=== PATIENT | female | born 1970 | race American Indian/Alaskan Native ===

== ENCOUNTER 2017-01-07 17:14 | Inpatient (IN) | payer BC ==
[2017-01-07 17:16] VITALS: BMI 24.7
--- NOTE | 2017-01-07 17:24 | C.PDOC ---
History Of Present Illness 46 year old female, history of HTN and diabetes, no history of stroke or HI, presents to the ED for evaluation of right sided facial droop and slurred speech. Per patients daughter, at approximately 16:15 this afternoon the patient began having right sided facial droop, slurring her speech, and stating that she felt her arm being rubbed by her long since child. Per patient , all of these symptoms have since resolved. She denies any physical complaints at this time. No chest pain, headache, or dizziness. Time Seen by Provider: 01/07/17 17:19 Chief Complaint (Nursing): Weakness/Neurological Deficit History Per: Patient, Family History/Exam Limitations: no limitations Current Symptoms Are (Timing): Gone Fall Associated With With Symptoms: No - Symptoms Of CVA Associated Symptoms: Impaired Speech Past Medical History Reviewed: Historical Data, Nursing Documentation, Vital Signs Vital Signs: Last Vital Signs Temp 98.9 F 01/07/17 17:15 Pulse 101 H 01/07/17 18:18 Resp 20 01/07/17 18:18 BP 182/103 H 01/07/17 18:18 Pulse Ox 96 01/07/17 18:18 - Medical History PMH: Diabetes, HTN Denies: CVA Family History: States: Unknown Family Hx - Social History Hx Alcohol Use: Yes Hx Substance Use: No - Immunization History Hx Tetanus Toxoid Vaccination: No Hx Influenza Vaccination: No Review Of Systems Cardiovascular: Negative for: Chest Pain Musculoskeletal: Negative for: Arm Pain Neurological: Positive for: Change in Speech, Other (Facial droop). Negative for: Headache, Dizziness Physical Exam - Physical Exam Appears: Non-toxic, No Acute Distress Skin: Normal Color, Warm, Dry Head: Atraumatic, Normacephalic Cardiovascular: Rhythm Regular, No Murmur Respiratory: Normal Breath Sounds Gastrointestinal/Abdominal: Normal Exam, Soft, No Tenderness Extremity: No Pedal Edema, No Deformity Neurological/Psych: Oriented x3, Normal Speech ED Course And Treatment - Laboratory Results Result Diagrams: 01/07/17 17:23 01/07/17 17:23 NIHSS Stroke Scale - Date/Time Evaluation Performed Date Performed: 01/07/17 Time Performed: 17:20 When Was NIHSS Performed: Baseline - How Severe is the Stoke Level of Consciousness: 0=Alert LOC to Questions: 0=Both comments correct LOC to commands: 0=Obeys both correctly Best Gaze: 0=Normal Visual: 0=No visual loss Facial: 1=Minor asymmetry Motor Arm - Left: 0=No drift Motor Arm - Right: 0=No drift Motor Leg - Left: 0=No drift Motor Leg - Right: 0=No drift Limb Ataxia: 0=Absent Sensory: 0=Normal Best Language: 0=No aphasia Dysarthia: 0=Normal articulation Extinction & Inattention (Neglect): 0=Normal, no object Score: 1 Severity Of Stroke: 1-4= Minor Stroke Medical Decision Making Medical Decision Making: Patient has multiple stroke risk factors including HTN, diabetes, and history of smoking. On arrival patient had a very high blood pressure however repeat BP was 177/[address] brain was read as no hemorrhage. Patient returned from CT scan and CT read as no hemorrhage. Patient began to develop slurred speech and facial droop while in ED. tPA was mixed. Patient is refusing the medication at this time. She is expressing understanding that this is standard of care and that her stroke symptoms could get worse. The patent and the family would prefer to wait until the results of the CTA are in before making a decision on treatment. Patient has signed refusal. Disposition Discussed With : Vinny Colón Counseled Patient/Family Regarding: Studies Performed, Diagnosis - Disposition Disposition: HOSPITALIZED Disposition Time: 18:28 Condition: GUARDED Forms: [facility] (Danish) - Clinical Impression Clinical Impression: Stroke - Scribe Statement The provider has reviewed the documentation as recorded by the Debibeibarturo Saul Provider Attestation: All medical record entries made by the Scribe were at my direction and personally dictated by me. I have reviewed the chart and agree that the record accurately reflects my personal performance of the history, physical exam, medical decision making, and the department course for this patient. I have also personally directed, reviewed, and agree with the discharge instructions and disposition. Decision To Admit - Pt Status Changed To: Hospital Disposition Of: Inpatient - Admit Certification Admit to Inpatient:: After my assessment, the patient will require hospitalization for at least two midnights. This is because of the severity of symptoms shown, intensity of services needed, and/or the medical risk in this patient being treated as an outpatient. - InPatient: Physician Admission Certification: I certify that this patient requires 2 or more midnights of care for the following reason:: stroke - . Bed Request Type: ICU Patient Diagnosis: Stroke
[2017-01-07 17:31] LABS: BASO # 0.1 K/uL (0.0-0.2); BASO % 0.5 % (0.0-2.0); EOS # 0.1 K/uL (0.0-0.7); EOS % 1.2 % (0.0-4.0); LYMPH # 2.4 K/uL (1.0-4.3); LYMPH % 21.4 % (20.0-40.0); MEAN CELL VOLUME 90.5 fL (81.0-99.0); MEAN CORPUSCULAR HEMOGLOBIN 31.8 pg (27.0-31.0); MEAN CORPUSCULAR HGB CONC 35.2 g/dL (33.0-37.0); MEAN PLATELET VOLUME 8.7 fL (7.2-11.7); MONO # 0.6 K/uL (0.0-0.8); RED CELL DISTRIBUTION WIDTH 12.7 % (11.5-14.5); WHITE BLOOD COUNT 11.3 K/uL (4.8-10.8)
[2017-01-07] MEDS ORDERED: Iodixanol 320 MG/ML 100 ML BOTTLE IV ONE (17:36)
--- NOTE | 2017-01-07 17:42 | CT ---
PROCEDURE: CT HEAD WITHOUT CONTRAST. HISTORY: Code Stroke COMPARISON: None available. TECHNIQUE: Axial computed tomography images were obtained through the head/brain without intravenous contrast. Radiation dose: Total exam DLP = 816.13 mGy-cm. This CT exam was performed using one or more of the following dose reduction techniques: Automated exposure control, adjustment of the mA and/or kV according to patient size, and/or use of iterative reconstruction technique. FINDINGS: HEMORRHAGE: No intracranial hemorrhage. BRAIN: No mass effect or edema. No atrophy or chronic microvascular ischemic changes. VENTRICLES: Unremarkable. No hydrocephalus. CALVARIUM: Unremarkable. PARANASAL SINUSES: Unremarkable as visualized. No significant inflammatory changes. MASTOID AIR CELLS: Unremarkable as visualized. No inflammatory changes. OTHER FINDINGS: None. IMPRESSION: No evidence of acute intracranial hemorrhage territorial infarct mass effect or midline shift.
[2017-01-07 17:46] LABS: CHLORIDE 96 mmol/L (98-107); SODIUM 134 mmol/L (132-148)
[2017-01-07 17:48] LABS: CHOLESTEROL 244 mg/dL (0-199)
[2017-01-07 17:49] LABS: ALB/GLOB RATIO 1.2 (1.0-2.1); ALKALINE PHOSPHATASE 80 U/L (38-126); ALT/SGPT 28 U/L (9-52); AST/SGOT 25 U/L (14-36); BILIRUBIN,TOTAL 0.6 mg/dL (0.2-1.3); BLOOD UREA NITROGEN 9 mg/dL (7-17); CARBON DIOXIDE 25 mmol/L (22-30); GFR AFRICAN-AMERICAN > 60; GLUCOSE,RANDOM 350 mg/dL (65-105); TOTAL PROTEIN 7.8 g/dL (6.3-8.3)
[2017-01-07 17:50] LABS: ALCOHOL SERUM < 10 mg/dl (0-10); CALCIUM 9.3 mg/dl (8.6-10.4)
[2017-01-07] MEDS: niCARdipine IV 25 MG in Sodium Chloride 0.9% 240 ML IV SCH ×2 (19:54→23:02)
--- NOTE | 2017-01-07 21:34 | CP.CCUPN ---
CCU Subjective - Physician Review Events Since Last Encounter (Free Text): 01/07/17 21:48 The Patient was seen and examined at the bedside, Medical records reviewed, and management issues were discussed and formulated with the house staff. 46 year old female with PMHx of HTN and diabetes, Who presents to the ED for evaluation of right sided facial droop and slurred speech. As per patients daughter the patient began having right sided facial droop, slurring her speech at approximately 16:15 this afternoon BP was elevated and was ordered to start Cardene drip but not started since BP better now No chest pain/SOB, No fever/chills, Denies headache, palpitation, LOC or dizziness. Admitted to ICU for frequent neurocheck Patient AAO x3, and all of the neurological symptoms have since resolved. CCU Objective - Vital Signs / Intake & Output Vital Signs (Last 4 hours): Vital Signs Temp Pulse Pulse Resp BP Pulse Ox 01/07/17 20:19 99.4 F 106 H 18 148/74 98 01/07/17 19:44 99.6 F 108 H 18 164/93 H 96 01/07/17 18:18 101 H 20 182/103 H 96 01/07/17 18:10 105 H 18 150/71 96 01/07/17 18:07 104 H 18 98 01/07/17 18:03 106 H 18 174/101 H 96 01/07/17 17:58 103 H 18 155/83 H 01/07/17 17:34 108 H 18 171/90 H 96 01/07/17 17:29 108 H 18 171/90 H 96 Intake and Output (Last 8hrs): Intake & Output 01/07/17 01/07/17 01/07/17 06:59 14:59 22:59 Weight 144 lb 6.444 oz - Physical Exam Head: Positive for: Atraumatic, Normocephalic, Other (Right sided facial droop ) . Negative for: Tenderness, Contusion, Swelling, Ecchymosis, Abrasion Pupils: Positive for: PERRL. Negative for: Sluggish, Non-Reactive Extroacular Muscles: Positive for: EOMI. Negative for: Gaze Palsy, Entrapment Conjunctiva: Positive for: Normal. Negative for: Injected, Icteric Ears: Positive for: Normal, NORMAL TM Mouth: Positive for: Moist Mucous Membranes. Negative for: Dry, Drooling, Trismus Pharnyx: Positive for: Normal Nose (Internal): Positive for: Normal Inspection Neck: Positive for: Normal Range of Motion, Trachea Midline. Negative for: Meningeal Signs, MIDLINE TENDERNESS, Paraspinal Tenderness, JVD, Lymphadenopathy , Bruit, Other Respiratory/Chest: Positive for: Clear to Auscultation, Good Air Exchange. Negative for: Respiratory Distress, Accessory Muscle Use, Wheezes, Decreased Breath Sounds, Rales, Retracting Cardiovascular: Positive for: Regular Rate and Rhythm, Normal S1, S2, Peripheal Pulses Present. Negative for: Murmurs, Irregular Rhythm, Tachycardic, Bradycardic Abdomen: Positive for: Normal Bowel Sounds. Negative for: Tenderness, Distention, Peritoneal Signs Upper Extremity: Positive for: Normal Inspection, NORMAL PULSES, Capillary Refill < 2s. Negative for: Cyanosis, Edema Lower Extremity: Positive for: Normal Inspection, NORMAL PULSES, Capillary Refill < 2 s. Negative for: Edema, CALF TENDERNESS Neurological: Positive for: GCS=15, CN II-XII Intact, Speech Normal, Motor Func Grossly Intact, Normal Sensory Function, Other (Right sided facial droop ) Psychiatric: Positive for: Alert, Oriented x 3, Normal Insight - Medications Active Medications: Active Medications Generic Name Dose Route Start Last Admin Trade Name Freq PRN Reason Stop Dose Admin Nicardipine HCl 25 mg/ Sodium 250 mls @ 50 mls/hr 01/07/17 18:45 01/07/17 19: 54 Chloride IV Not Given .Q5H ALIN Protocol 5 MG/HR - Patient Studies Lab Studies: Lab Studies 01/07/17 01/07/17 01/07/17 Range/Units 17:23 17:23 17:23 WBC (4.8-10.8) K/uL RBC (3.80-5.20) Mil/uL Hgb (11.0-16.0) g/dL Hct (34.0-47.0) % MCV (81.0-99.0) fL MCH (27.0-31.0) pg MCHC (33.0-37.0) g/dL RDW (11.5-14.5) % Plt Count (130-400) K/uL MPV (7.2-11.7) fL Neut % (Auto) (50.0-75.0) % Lymph % (Auto) (20.0-40.0) % Harmon % (Auto) (0.0-10.0) % Eos % (Auto) (0.0-4.0) % Baso % (Auto) (0.0-2.0) % Neut # (1.8-7.0) K/uL Lymph # (1.0-4.3) K/uL Harmon # (0.0-0.8) K/uL Eos # (0.0-0.7) K/uL Baso # (0.0-0.2) K/uL PT 11.8 (9.7-12.2) SECONDS INR 1.0 APTT 24 (21-34) SECONDS Sodium 134 (132-148) mmol/L Potassium 3.0 L (3.6-5.2) mmol/L Chloride 96 L (98-107) mmol/L Carbon Dioxide 25 (22-30) mmol/L Anion Gap 16 (10-20) BUN 9 (7-17) mg/dL Creatinine 0.6 L (0.7-1.2) mg/dL Est GFR ( Amer) > 60 Est GFR (Non-Af Amer) > 60 POC Glucose (mg/dL) (65-110) mg/dL Random Glucose 350 H (65-105) mg/dL Calcium 9.3 (8.6-10.4) mg/dl Total Bilirubin 0.6 (0.2-1.3) mg/dL AST 25 (14-36) U/L ALT 28 (9-52) U/L Alkaline Phosphatase 80 (38-126) U/L Troponin I < 0.0120 (0.00-0.120) ng/mL Total Protein 7.8 (6.3-8.3) g/dL Albumin 4.3 (3.5-5.0) g/dL Globulin 3.5 (2.2-3.9) gm/dL Albumin/Globulin Ratio 1.2 (1.0-2.1) Triglycerides 279 H (0-149) mg/dL Cholesterol 244 H (0-199) mg/dL LDL Cholesterol Direct 166 H (0-129) mg/dL HDL Cholesterol 41 (30-70) mg/dL Alcohol, Quantitative < 10 (0-10) mg/dl Blood Type O POSITIVE Antibody Screen Negative 01/07/17 01/07/17 Range/Units 17:23 17:18 WBC 11.3 H (4.8-10.8) K/uL RBC 4.09 (3.80-5.20) Mil/uL Hgb 13.0 (11.0-16.0) g/dL Hct 37.0 (34.0-47.0) % MCV 90.5 (81.0-99.0) fL MCH 31.8 H (27.0-31.0) pg MCHC 35.2 (33.0-37.0) g/dL RDW 12.7 (11.5-14.5) % Plt Count 314 (130-400) K/uL MPV 8.7 (7.2-11.7) fL Neut % (Auto) 71.9 (50.0-75.0) % Lymph % (Auto) 21.4 (20.0-40.0) % Harmon % (Auto) 5.0 (0.0-10.0) % Eos % (Auto) 1.2 (0.0-4.0) % Baso % (Auto) 0.5 (0.0-2.0) % Neut # 8.2 H (1.8-7.0) K/uL Lymph # 2.4 (1.0-4.3) K/uL Harmon # 0.6 (0.0-0.8) K/uL Eos # 0.1 (0.0-0.7) K/uL Baso # 0.1 (0.0-0.2) K/uL PT (9.7-12.2) SECONDS INR APTT (21-34) SECONDS Sodium (132-148) mmol/L Potassium (3.6-5.2) mmol/L Chloride (98-107) mmol/L Carbon Dioxide (22-30) mmol/L Anion Gap (10-20) BUN (7-17) mg/dL Creatinine (0.7-1.2) mg/dL Est GFR ( Amer) Est GFR (Non-Af Amer) POC Glucose (mg/dL) 368 H (65-110) mg/dL Random Glucose (65-105) mg/dL Calcium (8.6-10.4) mg/dl Total Bilirubin (0.2-1.3) mg/dL AST (14-36) U/L ALT (9-52) U/L Alkaline Phosphatase (38-126) U/L Troponin I (0.00-0.120) ng/mL Total Protein (6.3-8.3) g/dL Albumin (3.5-5.0) g/dL Globulin (2.2-3.9) gm/dL Albumin/Globulin Ratio (1.0-2.1) Triglycerides (0-149) mg/dL Cholesterol (0-199) mg/dL LDL Cholesterol Direct (0-129) mg/dL HDL Cholesterol (30-70) mg/dL Alcohol, Quantitative (0-10) mg/dl Blood Type Antibody Screen Laboratory Results - last 24 hr 01/07/17 01/07/17 01/07/17 17:18 17:23 17:23 WBC 11.3 H RBC 4.09 Hgb 13.0 Hct 37.0 MCV 90.5 MCH 31.8 H MCHC 35.2 RDW 12.7 Plt Count 314 MPV 8.7 Neut % (Auto) 71.9 Lymph % (Auto) 21.4 Harmon % (Auto) 5.0 Eos % (Auto) 1.2 Baso % (Auto) 0.5 Neut # 8.2 H Lymph # 2.4 Harmon # 0.6 Eos # 0.1 Baso # 0.1 PT 11.8 INR 1.0 APTT 24 Sodium Potassium Chloride Carbon Dioxide Anion Gap BUN Creatinine Est GFR ( Amer) Est GFR (Non-Af Amer) POC Glucose (mg/dL) 368 H Random Glucose Calcium Total Bilirubin AST ALT Alkaline Phosphatase Troponin I Total Protein Albumin Globulin Albumin/Globulin Ratio Triglycerides Cholesterol LDL Cholesterol Direct HDL Cholesterol Alcohol, Quantitative Blood Type Antibody Screen 01/07/17 01/07/17 17:23 17:23 WBC RBC Hgb Hct MCV MCH MCHC RDW Plt Count MPV Neut % (Auto) Lymph % (Auto) Harmon % (Auto) Eos % (Auto) Baso % (Auto) Neut # Lymph # Harmon # Eos # Baso # PT INR APTT Sodium 134 Potassium 3.0 L Chloride 96 L Carbon Dioxide 25 Anion Gap 16 BUN 9 Creatinine 0.6 L Est GFR ( Amer) > 60 Est GFR (Non-Af Amer) > 60 POC Glucose (mg/dL) Random Glucose 350 H Calcium 9.3 Total Bilirubin 0.6 AST 25 ALT 28 Alkaline Phosphatase 80 Troponin I < 0.0120 Total Protein 7.8 Albumin 4.3 Globulin 3.5 Albumin/Globulin Ratio 1.2 Triglycerides 279 H Cholesterol 244 H LDL Cholesterol Direct 166 H HDL Cholesterol 41 Alcohol, Quantitative < 10 Blood Type O POSITIVE Antibody Screen Negative EKG/Cardiology Studies: Cardiology / EKG Studies 01/07/17 17:18 ELECTROCARDIOGRAM Stat Comment: Mode Of Transportation: BED Reason For Exam: code stroke ELECTROCARDIOGRAM Stat Comment: Mode Of Transportation: BED Reason For Exam: code stroke 01/07/17 18:07 ELECTROCARDIOGRAM Stat Comment: Mode Of Transportation: BED Reason For Exam: code stroke Fingerstick Blood Sugar Results: 368 Review of Systems - Cardiovascular Cardiovascular: absent: As Per HPI, Acrocyanosis, Chest Pain, Chest Pain at Rest , Chest Pain with Activity, Claudication, Diaphoresis, Dyspnea, Dyspnea on Exertion, Edema, Irregular Heart Rhythm, Pain Radiating to Arm/Neck/Jaw, Leg Edema, Leg Ulcers, Lightheadedness, Orthopnea, Palpitations, Paroxysmal Nocturnal Dyspnea, Pedal Edema, Radiating Pain, Rapid Heart Rate, Slow Heart Rate, Syncope, Other, UNREMARKABLE - Respiratory Respiratory: absent: As Per HPI, Cough, Dyspnea, Hemoptysis, Dyspnea on Exertion , Wheezing, Snoring, Stridor, Pain on Inspiration, Chest Congestion, Excessive Mucous Production, Change in Mucous Color, Pain with Coughing, Other, UNREMARKABLE Critical Care Progress Note - Extremities/Vascular Does the Patient have a Central Venous Catheter?: No Does the Patient need a Central Venous Catheter?: No Does the Patient have a Jordan Catheter?: No Does the Patient need a Jordan Catheter?: No Assessment/Plan (1) Acute ischemic stroke Current Visit: Yes Status: Acute (2) Hyperglycemia Current Visit: No Status: Acute (3) Diabetes mellitus Current Visit: Yes Status: Acute - Assessment and Plan (Free Text) Assessment: - Admit to ICU, Frequent Neuro check - allow permissive hypertension; treat if systolic BP > 185 - NPO - Speech and swallow evaluation - PT/OT evaluation - MRI brain acute stroke sequences (diffusion/FLAIR) - Telemetry monitoring to assess for afib though low suspicion for embolus -- Blood glucose control - Check utox, A1c, lipid panel - 324 mg ASA x1, then restart 81 mg daily - Start atorvastatin 80 mg pending lipid panel - Neuro consult appreciate - GI/DVT PPX
[2017-01-07] MEDS ORDERED: Rosuvastatin Calcium 2.5 mg Tab PO SCH (22:00)
[2017-01-07] MEDS: (Novolin R) Insulin Human Regular 100 units/ml vial SC SCH (23:03)
[2017-01-07] MEDS: Metoprolol 1 mg/ml Inj IVP SCH (23:03)
--- NOTE | 2017-01-07 23:18 | CP.PCM.HP ---
History of Present Illness - History of Present Illness History of Present Illness: 46 year old female, history of HTN and diabetes, no history of stroke or CT, presents to the ED for evaluation of right sided facial droop and slurred speech. Per patients daughter, at approximately 16:15 this afternoon the patient began having right sided facial droop, slurring her speech, and stating that she felt her arm being rubbed by her long since child. Per patient , all of these symptoms have since resolved. She denies any physical complaints at this time. No chest pain, headache, or dizziness. Past Patient History - Past Social History Smoking Status: Light Smoker < 10 Cigarettes Daily - CARDIAC Hx Hypertension: Yes - ENDOCRINE/METABOLIC Hx Endocrine Disorders: Yes Hx Diabetes Mellitus Type 2: Yes - PSYCHIATRIC Hx Substance Use: No - SURGICAL HISTORY Hx Surgeries: No Meds Allergies/Adverse Reactions: Allergies Allergy/AdvReac Type Severity Reaction Status Date / Time No Known Allergies Allergy Verified 01/07/17 17:16 Results - Vital Signs Recent Vital Signs: Last Vital Signs Temp 99.4 F 01/07/17 20:19 Pulse 95 H 01/07/17 22:49 Resp 18 01/07/17 22:49 BP 125/59 L 01/07/17 22:49 Pulse Ox 90 L 01/07/17 22:49 - Labs Result Diagrams: 01/07/17 17:23 01/07/17 17:23 Labs: Laboratory Results - last 24 hr 01/07/17 01/07/17 01/07/17 17:18 17:23 17:23 WBC 11.3 H RBC 4.09 Hgb 13.0 Hct 37.0 MCV 90.5 MCH 31.8 H MCHC 35.2 RDW 12.7 Plt Count 314 MPV 8.7 Neut % (Auto) 71.9 Lymph % (Auto) 21.4 Levy % (Auto) 5.0 Eos % (Auto) 1.2 Baso % (Auto) 0.5 Neut # 8.2 H Lymph # 2.4 Levy # 0.6 Eos # 0.1 Baso # 0.1 PT 11.8 INR 1.0 APTT 24 Sodium Potassium Chloride Carbon Dioxide Anion Gap BUN Creatinine Est GFR ( Amer) Est GFR (Non-Af Amer) POC Glucose (mg/dL) 368 H Random Glucose Calcium Total Bilirubin AST ALT Alkaline Phosphatase Troponin I Total Protein Albumin Globulin Albumin/Globulin Ratio Triglycerides Cholesterol LDL Cholesterol Direct HDL Cholesterol Alcohol, Quantitative Blood Type Antibody Screen 01/07/17 01/07/17 17:23 17:23 WBC RBC Hgb Hct MCV MCH MCHC RDW Plt Count MPV Neut % (Auto) Lymph % (Auto) Levy % (Auto) Eos % (Auto) Baso % (Auto) Neut # Lymph # Levy # Eos # Baso # PT INR APTT Sodium 134 Potassium 3.0 L Chloride 96 L Carbon Dioxide 25 Anion Gap 16 BUN 9 Creatinine 0.6 L Est GFR ( Amer) > 60 Est GFR (Non-Af Amer) > 60 POC Glucose (mg/dL) Random Glucose 350 H Calcium 9.3 Total Bilirubin 0.6 AST 25 ALT 28 Alkaline Phosphatase 80 Troponin I < 0.0120 Total Protein 7.8 Albumin 4.3 Globulin 3.5 Albumin/Globulin Ratio 1.2 Triglycerides 279 H Cholesterol 244 H LDL Cholesterol Direct 166 H HDL Cholesterol 41 Alcohol, Quantitative < 10 Blood Type O POSITIVE Antibody Screen Negative
[2017-01-08 06:27] LABS: BASO % 0.5 % (0.0-2.0); EOS # 0.2 K/uL (0.0-0.7); EOS % 1.6 % (0.0-4.0); HEMATOCRIT 35.9 % (34.0-47.0); LYMPH # 2.6 K/uL (1.0-4.3); LYMPH % 26.7 % (20.0-40.0); MEAN CELL VOLUME 90.5 fL (81.0-99.0); MEAN CORPUSCULAR HGB CONC 35.4 g/dL (33.0-37.0); MEAN PLATELET VOLUME 8.9 fL (7.2-11.7); MONO # 0.5 K/uL (0.0-0.8); MONO % 5.3 % (0.0-10.0); NRBC % 0.2 % (0.0-2.0); RED CELL DISTRIBUTION WIDTH 13.1 % (11.5-14.5); WHITE BLOOD COUNT 9.9 K/uL (4.8-10.8)
[2017-01-08] MEDS: Metoprolol 1 mg/ml Inj IVP SCH ×4 (06:27→22:19)
[2017-01-08] MEDS: niCARdipine IV 25 MG in Sodium Chloride 0.9% 240 ML IV SCH ×2 (06:27→10:16)
[2017-01-08 06:31] LABS: CHLORIDE 97 mmol/L (98-107); SODIUM 134 mmol/L (132-148)
[2017-01-08 06:32] LABS: POTASSIUM 2.8 mmol/L (3.6-5.2)
[2017-01-08 06:34] LABS: ALKALINE PHOSPHATASE 77 U/L (38-126); AST/SGOT 15 U/L (14-36); BILIRUBIN,TOTAL 0.4 mg/dL (0.2-1.3); BLOOD UREA NITROGEN 7 mg/dL (7-17); CARBON DIOXIDE 27 mmol/L (22-30); GFR AFRICAN-AMERICAN > 60; GLUCOSE,RANDOM 272 mg/dL (65-105); PHOSPHOROUS 3.1 mg/dL (2.5-4.5); TOTAL PROTEIN 7.3 g/dL (6.3-8.3)
[2017-01-08 06:35] LABS: ALT/SGPT 27 U/L (9-52); CALCIUM 9.2 mg/dl (8.6-10.4); MAGNESIUM 1.7 mg/dL (1.6-2.3)
[2017-01-08] MEDS: (Novolin R) Insulin Human Regular 100 units/ml vial SC SCH ×4 (08:03→22:18)
--- NOTE | 2017-01-08 08:53 | RAD ---
HISTORY: code stroke COMPARISON: Comparison is made to 05/01/2015 FINDINGS: LUNGS: No active pulmonary disease. PLEURA: No significant pleural effusion identified, no pneumothorax apparent. CARDIOVASCULAR: Normal. OSSEOUS STRUCTURES: No significant abnormalities. VISUALIZED UPPER ABDOMEN: Normal. OTHER FINDINGS: None. IMPRESSION: No active disease. No significant interval change since the previous exam noted.
[2017-01-08] MEDS ORDERED: Potassium Chloride 20 mEq ER Tab PO SCH (10:00)
--- NOTE | 2017-01-08 10:23 | CT ---
PROCEDURE: CT Angiography of the Brain. HISTORY: possible stroke COMPARISON: Comparison is made to previous noncontrast study done on the same day TECHNIQUE: CT angiography of the intracranial arteries was performed. Coronal and sagittal maximum intensity projection reformated images were generated. Total exam DLP: 118.[address] exam was performed using one or more of the following dose reduction techniques: Automated exposure control, adjustment of the mA and/or kV according to patient size, and/or use of iterative reconstruction technique. FINDINGS: INTERNAL CEREBRAL ARTERIES: Unremarkable. The skull base, petrous, cavernous and supraclinoid segments are bilaterally widely patient. ANTERIOR CEREBRAL ARTERIES: Unremarkable. A1 and A2 segments are widely patent. Smaller distal branches unremarkable, as visualized. MIDDLE CEREBRAL ARTERIES: Unremarkable. M1 and M2 segments are widely patent. Perisylvian branches grossly symmetric. POSTERIOR CIRCULATION: Basilar Artery: Unremarkable. Distal Vertebral Arteries: Unremarkable. Posterior Cerebral Arteries: Unremarkable. Posterior Inferior Cerebellar Arteries: Unremarkable. ANEURYSM/ VASCULAR MALFORMATIONS: None. OTHER FINDINGS: None. IMPRESSION: No evidence of focal stenosis or occlusion in the intracranial arteries. No CTA evidence of intracranial aneurysm. Preliminary report was submitted by [facility].
[2017-01-08 10:27] LABS: T4 10.7 ug/dL (5.5-11.0)
[2017-01-08 10:40] LABS: THYROID STIMULATING HORMONE 0.92 mIU/L (0.46-4.68)
--- NOTE | 2017-01-08 11:03 | CP.CCUPN ---
CCU Subjective - Physician Review Subjective (Free Text): Patient was seen and examined at bedside. Patient reports that she is doing well.Patient has normal speech. Patient is able to ambulate and tolerating diet. Patient denies headache, blurry vision, numbness and tingling, chest pain , palpitations, fever, chills, nausea and vomiting. Patient seems to mildly agitated and uncooperative this morning. CCU Objective - Vital Signs / Intake & Output Vital Signs (Last 4 hours): Vital Signs Temp Pulse Resp BP Pulse Ox 01/08/17 10:14 137/80 01/08/17 08:20 81 21 95 01/08/17 08:10 82 15 94 L 01/08/17 08:00 98.5 F 84 12 97 01/08/17 07:50 82 16 96 01/08/17 07:49 82 16 113/60 96 01/08/17 07:40 84 18 95 01/08/17 07:30 86 16 95 01/08/17 07:20 88 16 97 01/08/17 07:10 89 13 96 01/08/17 07:00 85 14 96 Intake and Output (Last 8hrs): Intake & Output 01/07/17 01/08/17 01/08/17 22:59 06:59 14:59 Intake Total 400 0 Output Total 0 400 Balance 400 -400 0 Weight 144 lb 6.444 oz Intake: Intake, IV Amount 0 Right Hand 0 Oral 400 0 Output: Urine 0 400 Urine, Voided 0 400 Other: Voiding Method Toilet # Voids Urine, Voided 0 # Bowel Movements 0 - Physical Exam Head: Positive for: Atraumatic, Normocephalic, Other (Right sided facial droop ) . Negative for: Tenderness, Contusion, Swelling, Ecchymosis, Abrasion Pupils: Negative for: Sluggish, Non-Reactive Extroacular Muscles: Positive for: EOMI. Negative for: Gaze Palsy, Entrapment Conjunctiva: Positive for: Normal. Negative for: Injected, Icteric Mouth: Positive for: Moist Mucous Membranes. Negative for: Dry, Drooling, Trismus Pharnyx: Positive for: Normal Nose (Internal): Positive for: Normal Inspection Neck: Positive for: Normal Range of Motion, Trachea Midline. Negative for: Meningeal Signs, MIDLINE TENDERNESS, Paraspinal Tenderness, JVD, Lymphadenopathy , Bruit, Other Respiratory/Chest: Positive for: Clear to Auscultation, Good Air Exchange. Negative for: Respiratory Distress, Accessory Muscle Use, Wheezes, Decreased Breath Sounds, Rales, Retracting Cardiovascular: Positive for: Regular Rate and Rhythm, Normal S1, S2, Peripheal Pulses Present. Negative for: Murmurs, Irregular Rhythm, Tachycardic, Bradycardic Abdomen: Positive for: Normal Bowel Sounds. Negative for: Tenderness, Distention, Peritoneal Signs Upper Extremity: Positive for: Normal Inspection, NORMAL PULSES, Capillary Refill < 2s. Negative for: Cyanosis, Edema Lower Extremity: Positive for: Normal Inspection, NORMAL PULSES, Capillary Refill < 2 s. Negative for: Edema, CALF TENDERNESS Neurological: Positive for: GCS=15, CN II-XII Intact, Speech Normal, Motor Func Grossly Intact, Normal Sensory Function, Other (Right sided facial droop ) Psychiatric: Positive for: Alert, Oriented x 3, Normal Insight - Medications Active Medications: Active Medications Generic Name Dose Route Start Last Admin Trade Name Freq PRN Reason Stop Dose Admin Aspirin 81 mg 01/08/17 10:00 01/08/17 10:15 Aspirin Chewable PO 81 mg DAILY ALIN Administration Clopidogrel Bisulfate 75 mg 01/08/17 10:00 01/08/17 10:15 Plavix PO 75 mg DAILY ALIN Administration Heparin Sodium (Porcine) 5,000 units 01/07/17 22:00 01/08/17 10:14 Heparin SC 5,000 units Q12 ALIN Administration Insulin Human Regular 0 unit 01/07/17 22:00 01/08/17 08:03 Novolin R SC 3 unit ACHS ALIN Administration Protocol Metoprolol Tartrate 2.5 mg 01/07/17 22:30 01/08/17 10:00 Lopressor IVP Not Given Q6H ALIN Metoprolol Tartrate 25 mg 01/08/17 10:00 01/08/17 10:14 Lopressor PO 25 mg BID ALIN Administration Potassium Chloride 40 meq 01/08/17 10:00 01/08/17 10:15 K-Dur 20 Meq Er Tab PO 40 meq DAILY ALIN Administration Rosuvastatin Calcium 5 mg 01/08/17 22:00 Crestor PO HS ALIN - Patient Studies Lab Studies: Lab Studies 01/08/17 01/08/17 01/08/17 Range/Units 07:46 06:10 06:09 WBC 9.9 (4.8-10.8) K/uL RBC 3.97 (3.80-5.20) Mil/uL Hgb 12.7 (11.0-16.0) g/dL Hct 35.9 (34.0-47.0) % MCV 90.5 (81.0-99.0) fL MCH 32.0 H (27.0-31.0) pg MCHC 35.4 (33.0-37.0) g/dL RDW 13.1 (11.5-14.5) % Plt Count 294 (130-400) K/uL MPV 8.9 (7.2-11.7) fL Neut % (Auto) 65.9 (50.0-75.0) % Lymph % (Auto) 26.7 (20.0-40.0) % [place] % (Auto) 5.3 (0.0-10.0) % Eos % (Auto) 1.6 (0.0-4.0) % Baso % (Auto) 0.5 (0.0-2.0) % Neut # 6.5 (1.8-7.0) K/uL Lymph # 2.6 (1.0-4.3) K/uL [place] # 0.5 (0.0-0.8) K/uL Eos # 0.2 (0.0-0.7) K/uL Baso # 0.0 (0.0-0.2) K/uL PT (9.7-12.2) SECONDS INR APTT (21-34) SECONDS Sodium 134 (132-148) mmol/L Potassium 2.8 L (3.6-5.2) mmol/L Chloride 97 L (98-107) mmol/L Carbon Dioxide 27 (22-30) mmol/L Anion Gap 13 (10-20) BUN 7 (7-17) mg/dL Creatinine 0.5 L (0.7-1.2) mg/dL Est GFR ( Amer) > 60 Est GFR (Non-Af Amer) > 60 POC Glucose (mg/dL) 299 H (65-110) mg/dL Random Glucose 272 H (65-105) mg/dL Hemoglobin A1c (4.2-6.5) % Calcium 9.2 (8.6-10.4) mg/dl Phosphorus 3.1 (2.5-4.5) mg/dL Magnesium 1.7 (1.6-2.3) mg/dL Total Bilirubin 0.4 (0.2-1.3) mg/dL AST 15 (14-36) U/L ALT 27 (9-52) U/L Alkaline Phosphatase 77 (38-126) U/L Troponin I (0.00-0.120) ng/mL Total Protein 7.3 (6.3-8.3) g/dL Albumin 3.6 (3.5-5.0) g/dL Globulin 3.7 (2.2-3.9) gm/dL Albumin/Globulin Ratio 1.0 (1.0-2.1) Triglycerides (0-149) mg/dL Cholesterol (0-199) mg/dL LDL Cholesterol Direct (0-129) mg/dL HDL Cholesterol (30-70) mg/dL Thyroxine (T4) 10.7 (5.5-11.0) ug/dL Total T3 1.78 (1.49-2.60) nmol/L TSH 3rd Generation 0.92 (0.46-4.68) mIU/L Alcohol, Quantitative (0-10) mg/dl Blood Type Antibody Screen 01/08/17 01/07/17 01/07/17 Range/Units 00:25 17:23 17:23 WBC (4.8-10.8) K/uL RBC (3.80-5.20) Mil/uL Hgb (11.0-16.0) g/dL Hct (34.0-47.0) % MCV (81.0-99.0) fL MCH (27.0-31.0) pg MCHC (33.0-37.0) g/dL RDW (11.5-14.5) % Plt Count (130-400) K/uL MPV (7.2-11.7) fL Neut % (Auto) (50.0-75.0) % Lymph % (Auto) (20.0-40.0) % [place] % (Auto) (0.0-10.0) % Eos % (Auto) (0.0-4.0) % Baso % (Auto) (0.0-2.0) % Neut # (1.8-7.0) K/uL Lymph # (1.0-4.3) K/uL [place] # (0.0-0.8) K/uL Eos # (0.0-0.7) K/uL Baso # (0.0-0.2) K/uL PT (9.7-12.2) SECONDS INR APTT (21-34) SECONDS Sodium (132-148) mmol/L Potassium (3.6-5.2) mmol/L Chloride (98-107) mmol/L Carbon Dioxide (22-30) mmol/L Anion Gap (10-20) BUN (7-17) mg/dL Creatinine (0.7-1.2) mg/dL Est GFR ( Amer) Est GFR (Non-Af Amer) POC Glucose (mg/dL) 329 H (65-110) mg/dL Random Glucose (65-105) mg/dL Hemoglobin A1c 10.8 H (4.2-6.5) % Calcium (8.6-10.4) mg/dl Phosphorus (2.5-4.5) mg/dL Magnesium (1.6-2.3) mg/dL Total Bilirubin (0.2-1.3) mg/dL AST (14-36) U/L ALT (9-52) U/L Alkaline Phosphatase (38-126) U/L Troponin I (0.00-0.120) ng/mL Total Protein (6.3-8.3) g/dL Albumin (3.5-5.0) g/dL Globulin (2.2-3.9) gm/dL Albumin/Globulin Ratio (1.0-2.1) Triglycerides (0-149) mg/dL Cholesterol (0-199) mg/dL LDL Cholesterol Direct (0-129) mg/dL HDL Cholesterol (30-70) mg/dL Thyroxine (T4) (5.5-11.0) ug/dL Total T3 (1.49-2.60) nmol/L TSH 3rd Generation (0.46-4.68) mIU/L Alcohol, Quantitative (0-10) mg/dl Blood Type O POSITIVE Antibody Screen Negative 01/07/17 01/07/17 01/07/17 Range/Units 17:23 17:23 17:23 WBC 11.3 H (4.8-10.8) K/uL RBC 4.09 (3.80-5.20) Mil/uL Hgb 13.0 (11.0-16.0) g/dL Hct 37.0 (34.0-47.0) % MCV 90.5 (81.0-99.0) fL MCH 31.8 H (27.0-31.0) pg MCHC 35.2 (33.0-37.0) g/dL RDW 12.7 (11.5-14.5) % Plt Count 314 (130-400) K/uL MPV 8.7 (7.2-11.7) fL Neut % (Auto) 71.9 (50.0-75.0) % Lymph % (Auto) 21.4 (20.0-40.0) % [place] % (Auto) 5.0 (0.0-10.0) % Eos % (Auto) 1.2 (0.0-4.0) % Baso % (Auto) 0.5 (0.0-2.0) % Neut # 8.2 H (1.8-7.0) K/uL Lymph # 2.4 (1.0-4.3) K/uL [place] # 0.6 (0.0-0.8) K/uL Eos # 0.1 (0.0-0.7) K/uL Baso # 0.1 (0.0-0.2) K/uL PT 11.8 (9.7-12.2) SECONDS INR 1.0 APTT 24 (21-34) SECONDS Sodium 134 (132-148) mmol/L Potassium 3.0 L (3.6-5.2) mmol/L Chloride 96 L (98-107) mmol/L Carbon Dioxide 25 (22-30) mmol/L Anion Gap 16 (10-20) BUN 9 (7-17) mg/dL Creatinine 0.6 L (0.7-1.2) mg/dL Est GFR ( Amer) > 60 Est GFR (Non-Af Amer) > 60 POC Glucose (mg/dL) (65-110) mg/dL Random Glucose 350 H (65-105) mg/dL Hemoglobin A1c (4.2-6.5) % Calcium 9.3 (8.6-10.4) mg/dl Phosphorus (2.5-4.5) mg/dL Magnesium (1.6-2.3) mg/dL Total Bilirubin 0.6 (0.2-1.3) mg/dL AST 25 (14-36) U/L ALT 28 (9-52) U/L Alkaline Phosphatase 80 (38-126) U/L Troponin I < 0.0120 (0.00-0.120) ng/mL Total Protein 7.8 (6.3-8.3) g/dL Albumin 4.3 (3.5-5.0) g/dL Globulin 3.5 (2.2-3.9) gm/dL Albumin/Globulin Ratio 1.2 (1.0-2.1) Triglycerides 279 H (0-149) mg/dL Cholesterol 244 H (0-199) mg/dL LDL Cholesterol Direct 166 H (0-129) mg/dL HDL Cholesterol 41 (30-70) mg/dL Thyroxine (T4) (5.5-11.0) ug/dL Total T3 (1.49-2.60) nmol/L TSH 3rd Generation (0.46-4.68) mIU/L Alcohol, Quantitative < 10 (0-10) mg/dl Blood Type Antibody Screen 01/07/17 Range/Units 17:18 WBC (4.8-10.8) K/uL RBC (3.80-5.20) Mil/uL Hgb (11.0-16.0) g/dL Hct (34.0-47.0) % MCV (81.0-99.0) fL MCH (27.0-31.0) pg MCHC (33.0-37.0) g/dL RDW (11.5-14.5) % Plt Count (130-400) K/uL MPV (7.2-11.7) fL Neut % (Auto) (50.0-75.0) % Lymph % (Auto) (20.0-40.0) % [place] % (Auto) (0.0-10.0) % Eos % (Auto) (0.0-4.0) % Baso % (Auto) (0.0-2.0) % Neut # (1.8-7.0) K/uL Lymph # (1.0-4.3) K/uL [place] # (0.0-0.8) K/uL Eos # (0.0-0.7) K/uL Baso # (0.0-0.2) K/uL PT (9.7-12.2) SECONDS INR APTT (21-34) SECONDS Sodium (132-148) mmol/L Potassium (3.6-5.2) mmol/L Chloride (98-107) mmol/L Carbon Dioxide (22-30) mmol/L Anion Gap (10-20) BUN (7-17) mg/dL Creatinine (0.7-1.2) mg/dL Est GFR ( Amer) Est GFR (Non-Af Amer) POC Glucose (mg/dL) 368 H (65-110) mg/dL Random Glucose (65-105) mg/dL Hemoglobin A1c (4.2-6.5) % Calcium (8.6-10.4) mg/dl Phosphorus (2.5-4.5) mg/dL Magnesium (1.6-2.3) mg/dL Total Bilirubin (0.2-1.3) mg/dL AST (14-36) U/L ALT (9-52) U/L Alkaline Phosphatase (38-126) U/L Troponin I (0.00-0.120) ng/mL Total Protein (6.3-8.3) g/dL Albumin (3.5-5.0) g/dL Globulin (2.2-3.9) gm/dL Albumin/Globulin Ratio (1.0-2.1) Triglycerides (0-149) mg/dL Cholesterol (0-199) mg/dL LDL Cholesterol Direct (0-129) mg/dL HDL Cholesterol (30-70) mg/dL Thyroxine (T4) (5.5-11.0) ug/dL Total T3 (1.49-2.60) nmol/L TSH 3rd Generation (0.46-4.68) mIU/L Alcohol, Quantitative (0-10) mg/dl Blood Type Antibody Screen Laboratory Results - last 24 hr 01/07/17 01/07/17 01/07/17 17:18 17:23 17:23 WBC 11.3 H RBC 4.09 Hgb 13.0 Hct 37.0 MCV 90.5 MCH 31.8 H MCHC 35.2 RDW 12.7 Plt Count 314 MPV 8.7 Neut % (Auto) 71.9 Lymph % (Auto) 21.4 [place] % (Auto) 5.0 Eos % (Auto) 1.2 Baso % (Auto) 0.5 Neut # 8.2 H Lymph # 2.4 [place] # 0.6 Eos # 0.1 Baso # 0.1 PT 11.8 INR 1.0 APTT 24 Sodium Potassium Chloride Carbon Dioxide Anion Gap BUN Creatinine Est GFR ( Amer) Est GFR (Non-Af Amer) POC Glucose (mg/dL) 368 H Random Glucose Hemoglobin A1c Calcium Phosphorus Magnesium Total Bilirubin AST ALT Alkaline Phosphatase Troponin I Total Protein Albumin Globulin Albumin/Globulin Ratio Triglycerides Cholesterol LDL Cholesterol Direct HDL Cholesterol Thyroxine (T4) Total T3 TSH 3rd Generation Alcohol, Quantitative Blood Type Antibody Screen 01/07/17 01/07/17 01/07/17 17:23 17:23 17:23 WBC RBC Hgb Hct MCV MCH MCHC RDW Plt Count MPV Neut % (Auto) Lymph % (Auto) [place] % (Auto) Eos % (Auto) Baso % (Auto) Neut # Lymph # [place] # Eos # Baso # PT INR APTT Sodium 134 Potassium 3.0 L Chloride 96 L Carbon Dioxide 25 Anion Gap 16 BUN 9 Creatinine 0.6 L Est GFR ( Amer) > 60 Est GFR (Non-Af Amer) > 60 POC Glucose (mg/dL) Random Glucose 350 H Hemoglobin A1c 10.8 H Calcium 9.3 Phosphorus Magnesium Total Bilirubin 0.6 AST 25 ALT 28 Alkaline Phosphatase 80 Troponin I < 0.0120 Total Protein 7.8 Albumin 4.3 Globulin 3.5 Albumin/Globulin Ratio 1.2 Triglycerides 279 H Cholesterol 244 H LDL Cholesterol Direct 166 H HDL Cholesterol 41 Thyroxine (T4) Total T3 TSH 3rd Generation Alcohol, Quantitative < 10 Blood Type O POSITIVE Antibody Screen Negative 01/08/17 01/08/17 01/08/17 00:25 06:09 06:10 WBC 9.9 RBC 3.97 Hgb 12.7 Hct 35.9 MCV 90.5 MCH 32.0 H MCHC 35.4 RDW 13.1 Plt Count 294 MPV 8.9 Neut % (Auto) 65.9 Lymph % (Auto) 26.7 [place] % (Auto) 5.3 Eos % (Auto) 1.6 Baso % (Auto) 0.5 Neut # 6.5 Lymph # 2.6 [place] # 0.5 Eos # 0.2 Baso # 0.0 PT INR APTT Sodium 134 Potassium 2.8 L Chloride 97 L Carbon Dioxide 27 Anion Gap 13 BUN 7 Creatinine 0.5 L Est GFR ( Amer) > 60 Est GFR (Non-Af Amer) > 60 POC Glucose (mg/dL) 329 H Random Glucose 272 H Hemoglobin A1c Calcium 9.2 Phosphorus 3.1 Magnesium 1.7 Total Bilirubin 0.4 AST 15 ALT 27 Alkaline Phosphatase 77 Troponin I Total Protein 7.3 Albumin 3.6 Globulin 3.7 Albumin/Globulin Ratio 1.0 Triglycerides Cholesterol LDL Cholesterol Direct HDL Cholesterol Thyroxine (T4) 10.7 Total T3 1.78 TSH 3rd Generation 0.92 Alcohol, Quantitative Blood Type Antibody Screen 01/08/17 07:46 WBC RBC Hgb Hct MCV MCH MCHC RDW Plt Count MPV Neut % (Auto) Lymph % (Auto) [place] % (Auto) Eos % (Auto) Baso % (Auto) Neut # Lymph # [place] # Eos # Baso # PT INR APTT Sodium Potassium Chloride Carbon Dioxide Anion Gap BUN Creatinine Est GFR ( Amer) Est GFR (Non-Af Amer) POC Glucose (mg/dL) 299 H Random Glucose Hemoglobin A1c Calcium Phosphorus Magnesium Total Bilirubin AST ALT Alkaline Phosphatase Troponin I Total Protein Albumin Globulin Albumin/Globulin Ratio Triglycerides Cholesterol LDL Cholesterol Direct HDL Cholesterol Thyroxine (T4) Total T3 TSH 3rd Generation Alcohol, Quantitative Blood Type Antibody Screen EKG/Cardiology Studies: Cardiology / EKG Studies 01/07/17 17:18 ELECTROCARDIOGRAM Stat Comment: Mode Of Transportation: BED Reason For Exam: code stroke ELECTROCARDIOGRAM Stat Comment: Mode Of Transportation: BED Reason For Exam: code stroke 01/07/17 18:07 ELECTROCARDIOGRAM Stat Comment: Mode Of Transportation: BED Reason For Exam: code stroke Fingerstick Blood Sugar Results: 299 Review of Systems - Constitutional Constitutional: absent: Fever, Chills, Weakness - EENT Eyes: absent: Blurred Vision, Change in Vision Ears: absent: Dizziness - Cardiovascular Cardiovascular: absent: Chest Pain, Dyspnea, Edema, Lightheadedness, Palpitations, Syncope - Respiratory Respiratory: absent: Dyspnea, Wheezing - Gastrointestinal Gastrointestinal: absent: Abdominal Pain, Diarrhea, Nausea, Vomiting - Musculoskeletal Musculoskeletal: absent: Numbness, Tingling - Neurological Neurological: absent: Confusion, Dizziness, Numbness, Focal Weakness, Headaches , Tingling, Weakness - Endocrine Endocrine: absent: Fatigue, Palpitations Critical Care Progress Note - Nutrition Nutrition: Nutrition Category Date Time Status Heart Healthy Diet [DIET] Diets 01/07/17 Breakfast Active Assessment/Plan - Assessment and Plan (Free Text) Assessment: Patient is a 46 year old female with past medical history of hypertension, diabetes who presented to the ED with right-sided facial droop and slurred speech with elevated blood pressure on admission: Plan: Transfer to telemetry Plan: Neuro: Possible TIA, alert, awake and oriented Neurology Consult, Dr. Gross----> Help appreciated * F/u as per recommendation * Echocardiogram and Brain MRI W/O contrast * Head CT (01/07/17): No evidence of acute intracranial hemorrhage territorial infarct mass effect or midline shift Medication: * Aspirin 81 mg PO daily * Plavix 75mg PO daily\ * Crestor 5mg PO HS Cardio: Hx of HTN Medication: * Metoprolol Tartate 25mg PO BID Pulm: No acute issues Endo: Hx of DM Medication/Management: * Accuchecks * ISS, Low Dose Renal: Electrolyte imbalance ( Hypokalemia) * Repleted appropriately Prophylaxis: DVT: SCDs and Heparin 5,000 units SC Q12H GI: Pepcid 20mg PO daily Plans: Transfer to telemetry
[2017-01-08] MEDS ORDERED: Magnesium Sulfate 1 gm in D5W 1 GM/100 ML BAG IVPB ONE (11:41)
[2017-01-08] MEDS: Potassium Chloride 20 mEq ER Tab PO SCH (11:56)
--- NOTE | 2017-01-08 12:46 | CP.PCM.CON ---
<Nikita Robles - Last Filed: 01/08/17 12:51> History of Present Illness - History of Present Illness History of Present Illness: Ms Altamirano was seen and examined at the bedside. She is a 46 year old female, history of HTN and diabetes, no history of stroke or OR, presents to the ED for evaluation of right sided facial droop and slurred speech. Per patients daughter, at approximately 16:15 on 01/07/2017 the patient began having right sided facial droop, slurring her speech, and stating that she felt her arm being rubbed by her long since child. Per patient, all of these symptoms have since resolved. She denies any chest pain, headache, lightheadedness, blurry vision, weakness, or dizziness. Review of Systems - Review of Systems All systems: reviewed and no additional remarkable complaints except Past Patient History - Past Medical History & Family History Past Medical History?: Yes - Past Social History Smoking Status: Light Smoker < 10 Cigarettes Daily - CARDIAC Hx Hypertension: Yes - PULMONARY Hx Respiratory Disorders: No - NEUROLOGICAL Hx Neurological Disorder: No - HEENT Hx HEENT Problems: No - RENAL Hx Chronic Kidney Disease: No - ENDOCRINE/METABOLIC Hx Diabetes Mellitus Type 2: Yes - HEMATOLOGICAL/ONCOLOGICAL Hx Blood Disorders: No - INTEGUMENTARY Hx Dermatological Problems: No - MUSCULOSKELETAL/RHEUMATOLOGICAL Hx Musculoskeletal Disorders: No - GASTROINTESTINAL Hx Gastrointestinal Disorders: No - GENITOURINARY/GYNECOLOGICAL Hx Genitourinary Disorders: No - PSYCHIATRIC Hx Substance Use: No - SURGICAL HISTORY Hx Surgeries: No - ANESTHESIA Hx Anesthesia: No Meds Allergies/Adverse Reactions: Allergies Allergy/AdvReac Type Severity Reaction Status Date / Time No Known Allergies Allergy Verified 01/07/17 17:16 - Medications Medications: Current Medications Aspirin (Aspirin Chewable) 81 mg PO DAILY [facility] Last Admin: 01/08/17 10:15 Dose: 81 mg Clopidogrel Bisulfate (Plavix) 75 mg PO DAILY [facility] Last Admin: 01/08/17 10:15 Dose: 75 mg Famotidine (Pepcid) 20 mg PO DAILY [facility] Last Admin: 01/08/17 11:58 Dose: 20 mg Heparin Sodium (Porcine) (Heparin) 5,000 units SC Q12 [facility] Last Admin: 01/08/17 10:14 Dose: 5,000 units Insulin Human Regular (Novolin R) 0 unit SC ACHS [facility] PRN Reason: Protocol Last Admin: 01/08/17 11:55 Dose: 3 unit Metoprolol Tartrate (Lopressor) 2.5 mg IVP Q6H [facility] Last Admin: 01/08/17 10:00 Dose: Not Given Metoprolol Tartrate (Lopressor) 25 mg PO BID [facility] Last Admin: 01/08/17 10:14 Dose: 25 mg Potassium Chloride (K-Dur 20 Meq Er Tab) 40 meq PO DAILY [facility] Last Admin: 01/08/17 11:56 Dose: 40 meq Rosuvastatin Calcium (Crestor) 5 mg PO HS [facility] Physical Exam - Constitutional Appears: Well - Head Exam Head Exam: ATRAUMATIC, NORMAL INSPECTION, NORMOCEPHALIC - Eye Exam Eye Exam: EOMI, Normal appearance, PERRL - ENT Exam ENT Exam: Mucous Membranes Moist, Normal Exam - Neck Exam Neck exam: Positive for: Normal Inspection - Respiratory Exam Respiratory Exam: Clear to Auscultation Bilateral, NORMAL BREATHING PATTERN - GI/Abdominal Exam GI & Abdominal Exam: Normal Bowel Sounds, Soft. absent: Tenderness - Rectal Exam Rectal Exam: NORMAL INSPECTION - Extremities Exam Extremities exam: Positive for: normal inspection - Neurological Exam Neurological exam: Alert, CN II-XII Intact, Normal Gait, Oriented x3, Reflexes Normal - Expanded Neurological Exam Expanded Patient oriented to: person, place, time Cranial nerves: EOM's Intact: Normal, Facial Palsey w/Forehead Movement: Normal , Facial Palsey w/o Forehead Movement: Normal, Facial Sensation: Normal, Tongue Deviation: Normal Ataxia: No Cerebellar Function: Finger to Nose: Normal, Heel to Hitchcock: Normal Upper motor neuron: Babinski Sign: Normal, Pronator Drift: Normal Sensory exam: Lower Extremity 2 Point Discrimination: Normal, Lower Extremity Light Touch: Normal, Lower Extremity Pin Prick: Normal, Lower Extremity Temperature: Normal, Upper Extremity 2 Point Discrimination: Normal, Upper Extremity Light Touch: Normal, Upper Extremity Pin Prick: Normal, Upper Extremity Temperature: Normal Neuro motor strength exam: Left Upper Extremity: 5, Right Upper Extremity: 5, Left Lower Extremity: 5, Right Lower Extremity: 5 DTR: Achilles Tendon Left: 3+, Achilles Tendon Right: 3+, Bicep Left: 3+, Bicep Right: 3+ - Psychiatric Exam Psychiatric exam: Normal Affect, Normal Mood - Skin Skin Exam: Dry, Intact, Normal Color, Warm Results - Vital Signs Recent Vital Signs: Last Vital Signs Temp 98.2 F 01/08/17 12:00 Pulse 87 01/08/17 12:00 Resp 13 01/08/17 12:00 BP 128/75 01/08/17 11:49 Pulse Ox 96 01/08/17 12:00 - Labs Result Diagrams: 01/08/17 06:09 01/08/17 06:10 Labs: Laboratory Results - last 24 hr 01/07/17 01/07/17 01/07/17 17:18 17:23 17:23 WBC 11.3 H RBC 4.09 Hgb 13.0 Hct 37.0 MCV 90.5 MCH 31.8 H MCHC 35.2 RDW 12.7 Plt Count 314 MPV 8.7 Neut % (Auto) 71.9 Lymph % (Auto) 21.4 [place] % (Auto) 5.0 Eos % (Auto) 1.2 Baso % (Auto) 0.5 Neut # 8.2 H Lymph # 2.4 Meeker # 0.6 Eos # 0.1 Baso # 0.1 PT 11.8 INR 1.0 APTT 24 Sodium Potassium Chloride Carbon Dioxide Anion Gap BUN Creatinine Est GFR ( Amer) Est GFR (Non-Af Amer) POC Glucose (mg/dL) 368 H Random Glucose Hemoglobin A1c Calcium Phosphorus Magnesium Total Bilirubin AST ALT Alkaline Phosphatase Troponin I Total Protein Albumin Globulin Albumin/Globulin Ratio Triglycerides Cholesterol LDL Cholesterol Direct HDL Cholesterol Thyroxine (T4) Total T3 TSH 3rd Generation Alcohol, Quantitative Blood Type Antibody Screen 01/07/17 01/07/17 01/07/17 17:23 17:23 17:23 WBC RBC Hgb Hct MCV MCH MCHC RDW Plt Count MPV Neut % (Auto) Lymph % (Auto) [place] % (Auto) Eos % (Auto) Baso % (Auto) Neut # Lymph # [place] # Eos # Baso # PT INR APTT Sodium 134 Potassium 3.0 L Chloride 96 L Carbon Dioxide 25 Anion Gap 16 BUN 9 Creatinine 0.6 L Est GFR ( Amer) > 60 Est GFR (Non-Af Amer) > 60 POC Glucose (mg/dL) Random Glucose 350 H Hemoglobin A1c 10.8 H Calcium 9.3 Phosphorus Magnesium Total Bilirubin 0.6 AST 25 ALT 28 Alkaline Phosphatase 80 Troponin I < 0.0120 Total Protein 7.8 Albumin 4.3 Globulin 3.5 Albumin/Globulin Ratio 1.2 Triglycerides 279 H Cholesterol 244 H LDL Cholesterol Direct 166 H HDL Cholesterol 41 Thyroxine (T4) Total T3 TSH 3rd Generation Alcohol, Quantitative < 10 Blood Type O POSITIVE Antibody Screen Negative 01/08/17 01/08/17 01/08/17 00:25 06:09 06:10 WBC 9.9 RBC 3.97 Hgb 12.7 Hct 35.9 MCV 90.5 MCH 32.0 H MCHC 35.4 RDW 13.1 Plt Count 294 MPV 8.9 Neut % (Auto) 65.9 Lymph % (Auto) 26.7 [place] % (Auto) 5.3 Eos % (Auto) 1.6 Baso % (Auto) 0.5 Neut # 6.5 Lymph # 2.6 Meeker # 0.5 Eos # 0.2 Baso # 0.0 PT INR APTT Sodium 134 Potassium 2.8 L Chloride 97 L Carbon Dioxide 27 Anion Gap 13 BUN 7 Creatinine 0.5 L Est GFR ( Amer) > 60 Est GFR (Non-Af Amer) > 60 POC Glucose (mg/dL) 329 H Random Glucose 272 H Hemoglobin A1c Calcium 9.2 Phosphorus 3.1 Magnesium 1.7 Total Bilirubin 0.4 AST 15 ALT 27 Alkaline Phosphatase 77 Troponin I Total Protein 7.3 Albumin 3.6 Globulin 3.7 Albumin/Globulin Ratio 1.0 Triglycerides Cholesterol LDL Cholesterol Direct HDL Cholesterol Thyroxine (T4) 10.7 Total T3 1.78 TSH 3rd Generation 0.92 Alcohol, Quantitative Blood Type Antibody Screen 01/08/17 01/08/17 07:46 11:20 WBC RBC Hgb Hct MCV MCH MCHC RDW Plt Count MPV Neut % (Auto) Lymph % (Auto) [place] % (Auto) Eos % (Auto) Baso % (Auto) Neut # Lymph # [place] # Eos # Baso # PT INR APTT Sodium Potassium Chloride Carbon Dioxide Anion Gap BUN Creatinine Est GFR ( Amer) Est GFR (Non-Af Amer) POC Glucose (mg/dL) 299 H 297 H Random Glucose Hemoglobin A1c Calcium Phosphorus Magnesium Total Bilirubin AST ALT Alkaline Phosphatase Troponin I Total Protein Albumin Globulin Albumin/Globulin Ratio Triglycerides Cholesterol LDL Cholesterol Direct HDL Cholesterol Thyroxine (T4) Total T3 TSH 3rd Generation Alcohol, Quantitative Blood Type Antibody Screen - Imaging and Cardiology CT scan - head Status: Report reviewed by me (No evidence of intracranial aneurysm, focal stenosis of occlusion in the intracranial arteries.) Assessment & Plan (1) Acute ischemic stroke Assessment and Plan: Case discussed with Dr. Gross. The followinga re being recommended for work up and treat. 1. Telemetry 2. MRI of the brain without contrast. 3. Echocargiogram with bubble study 4. Continue Aspirin 81 mg PO daily 5. Plavix 75 mg PO daily. 6. Increase Crestor to 5 mg PO daily 7. Stroke work up; TSH, T3, T4, 8. PT/ Ot eval and treat. 9. DVT prophylaxis 10. Case management. Thank you Status: Acute <Yuri Gross - Last Filed: 01/08/17 18:02> Meds - Medications Medications: Current Medications Aspirin (Aspirin Chewable) 81 mg PO DAILY [facility] Last Admin: 01/08/17 10:15 Dose: 81 mg Clopidogrel Bisulfate (Plavix) 75 mg PO DAILY [facility] Last Admin: 01/08/17 10:15 Dose: 75 mg Famotidine (Pepcid) 20 mg PO DAILY [facility] Last Admin: 01/08/17 11:58 Dose: 20 mg Heparin Sodium (Porcine) (Heparin) 5,000 units SC Q12 [facility] Last Admin: 01/08/17 10:14 Dose: 5,000 units Insulin Human Regular (Novolin R) 0 unit SC ACHS [facility] PRN Reason: Protocol Last Admin: 01/08/17 17:03 Dose: 4 unit Metoprolol Tartrate (Lopressor) 2.5 mg IVP Q6H [facility] Last Admin: 01/08/17 17:06 Dose: Not Given Metoprolol Tartrate (Lopressor) 25 mg PO BID [facility] Last Admin: 01/08/17 17:03 Dose: 25 mg Potassium Chloride (K-Dur 20 Meq Er Tab) 40 meq PO DAILY [facility] Last Admin: 01/08/17 11:56 Dose: 40 meq Rosuvastatin Calcium (Crestor) 5 mg PO HS [facility] Results - Vital Signs Recent Vital Signs: Last Vital Signs Temp 98.3 F 01/08/17 15:15 Pulse 84 01/08/17 15:15 Resp 20 01/08/17 15:15 BP 130/90 01/08/17 17:03 Pulse Ox 99 01/08/17 15:15 - Labs Result Diagrams: 01/08/17 06:09 01/08/17 06:10 Labs: Laboratory Results - last 24 hr 01/07/17 01/07/17 01/07/17 17:23 17:23 17:23 WBC RBC Hgb Hct MCV MCH MCHC RDW Plt Count MPV Neut % (Auto) Lymph % (Auto) [place] % (Auto) Eos % (Auto) Baso % (Auto) Neut # Lymph # [place] # Eos # Baso # Sodium Potassium Chloride Carbon Dioxide Anion Gap BUN Creatinine Est GFR ( Amer) Est GFR (Non-Af Amer) POC Glucose (mg/dL) Random Glucose Hemoglobin A1c 10.8 H Calcium Phosphorus Magnesium Total Bilirubin AST ALT Alkaline Phosphatase Troponin I < 0.0120 Total Protein Albumin Globulin Albumin/Globulin Ratio LDL Cholesterol Direct 166 H Thyroxine (T4) Total T3 TSH 3rd Generation Urine Color Urine Clarity Urine pH Ur Specific [place] Urine Protein Urine Glucose (UA) Urine Ketones Urine Blood Urine Nitrate Urine Bilirubin Urine Urobilinogen Ur Leukocyte Esterase Urine WBC (Auto) Urine RBC (Auto) Ur Squamous Epith Cells Urine HCG, Qual Blood Type O POSITIVE Antibody Screen Negative 01/08/17 01/08/17 01/08/17 00:25 06:09 06:10 WBC 9.9 RBC 3.97 Hgb 12.7 Hct 35.9 MCV 90.5 MCH 32.0 H MCHC 35.4 RDW 13.1 Plt Count 294 MPV 8.9 Neut % (Auto) 65.9 Lymph % (Auto) 26.7 [place] % (Auto) 5.3 Eos % (Auto) 1.6 Baso % (Auto) 0.5 Neut # 6.5 Lymph # 2.6 Meeker # 0.5 Eos # 0.2 Baso # 0.0 Sodium 134 Potassium 2.8 L Chloride 97 L Carbon Dioxide 27 Anion Gap 13 BUN 7 Creatinine 0.5 L Est GFR ( Amer) > 60 Est GFR (Non-Af Amer) > 60 POC Glucose (mg/dL) 329 H Random Glucose 272 H Hemoglobin A1c Calcium 9.2 Phosphorus 3.1 Magnesium 1.7 Total Bilirubin 0.4 AST 15 ALT 27 Alkaline Phosphatase 77 Troponin I Total Protein 7.3 Albumin 3.6 Globulin 3.7 Albumin/Globulin Ratio 1.0 LDL Cholesterol Direct Thyroxine (T4) 10.7 Total T3 1.78 TSH 3rd Generation 0.92 Urine Color Urine Clarity Urine pH Ur Specific [place] Urine Protein Urine Glucose (UA) Urine Ketones Urine Blood Urine Nitrate Urine Bilirubin Urine Urobilinogen Ur Leukocyte Esterase Urine WBC (Auto) Urine RBC (Auto) Ur Squamous Epith Cells Urine HCG, Qual Blood Type Antibody Screen 01/08/17 01/08/17 01/08/17 07:46 11:20 14:24 WBC RBC Hgb Hct MCV MCH MCHC RDW Plt Count MPV Neut % (Auto) Lymph % (Auto) [place] % (Auto) Eos % (Auto) Baso % (Auto) Neut # Lymph # [place] # Eos # Baso # Sodium Potassium Chloride Carbon Dioxide Anion Gap BUN Creatinine Est GFR ( Amer) Est GFR (Non-Af Amer) POC Glucose (mg/dL) 299 H 297 H Random Glucose Hemoglobin A1c Calcium Phosphorus Magnesium Total Bilirubin AST ALT Alkaline Phosphatase Troponin I Total Protein Albumin Globulin Albumin/Globulin Ratio LDL Cholesterol Direct Thyroxine (T4) Total T3 TSH 3rd Generation Urine Color Yellow Urine Clarity Clear Urine pH 6.0 Ur Specific [place] 1.031 H Urine Protein Negative Urine Glucose (UA) 3+ H Urine Ketones Negative Urine Blood Negative Urine Nitrate Negative Urine Bilirubin Negative Urine Urobilinogen Normal Ur Leukocyte Esterase 1+ H Urine WBC (Auto) 5 Urine RBC (Auto) 4 H Ur Squamous Epith Cells 2 Urine HCG, Qual Negative Blood Type Antibody Screen 01/08/17 16:46 WBC RBC Hgb Hct MCV MCH MCHC RDW Plt Count MPV Neut % (Auto) Lymph % (Auto) [place] % (Auto) Eos % (Auto) Baso % (Auto) Neut # Lymph # [place] # Eos # Baso # Sodium Potassium Chloride Carbon Dioxide Anion Gap BUN Creatinine Est GFR ( Amer) Est GFR (Non-Af Amer) POC Glucose (mg/dL) 311 H Random Glucose Hemoglobin A1c Calcium Phosphorus Magnesium Total Bilirubin AST ALT Alkaline Phosphatase Troponin I Total Protein Albumin Globulin Albumin/Globulin Ratio LDL Cholesterol Direct Thyroxine (T4) Total T3 TSH 3rd Generation Urine Color Urine Clarity Urine pH Ur Specific [place] Urine Protein Urine Glucose (UA) Urine Ketones Urine Blood Urine Nitrate Urine Bilirubin Urine Urobilinogen Ur Leukocyte Esterase Urine WBC (Auto) Urine RBC (Auto) Ur Squamous Epith Cells Urine HCG, Qual Blood Type Antibody Screen Assessment & Plan (1) Acute ischemic stroke Assessment and Plan: I agree with the assessment and plan. The patient will require a stroke work- up and in addition I recommend smoking cessation. Status: Acute
--- NOTE | 2017-01-08 13:20 | MRI ---
PROCEDURE: MRI BRAIN WITHOUT CONTRAST HISTORY: follow up rigt side weakness COMPARISON: Comparison is made to the previous CTA and CT of the brain dated 01/07/2017 TECHNIQUE: Multiplanar, multisequence MR images of the brain were obtained without intravenous contrast enhancement. FINDINGS: HEMORRHAGE: None DWI: There are foci of diffusion restriction at the right temporal parietal lobe. Consistent with acute/early subacute infarction. BRAIN PARENCHYMA: No mass effect or edema. No atrophy or chronic microvascular ischemic changes. VENTRICLES: Unremarkable. No hydrocephalus. CRANIUM: Unremarkable. ORBITS: Grossly unremarkable. PARANASAL SINUSES/MASTOIDS: Clear VASCULAR SYSTEM: Skull base flow voids intact. OTHER FINDINGS: None. IMPRESSION: Foci of diffusion restriction seen at the right temporal parietal lobes consistent with acute/ subacute infarction. No other acute pathology in the brain. The above findings were reported to resident taking care of the patient in the intensive care unit Dr. Calle at 1:10 p.m. on 01/08/2017
[2017-01-08 14:43] LABS: RBC URINE 4 /hpf (0-3); URINE BILIRUBIN NEGATIVE (NEGATIVE); URINE BLOOD NEGATIVE (NEGATIVE); URINE COLOR Yellow (YELLOW); URINE GLUCOSE (UA) 3+ mg/dL (Normal); URINE KETONE NEGATIVE (NEGATIVE); URINE LEUKOCYTE ESTERASE 1+ Leu/uL (Negative); URINE PROTEIN NEGATIVE (NEGATIVE); URINE UROBILINOGEN NORMAL mg/dL (0.2-1.0); WBC URINE 5 /hpf (0-5)
[2017-01-08 16:15] VITALS: RESP 20
--- NOTE | 2017-01-08 21:37 | CARD ---
APPROVED REPORT EKG Measurement Heart [id number] CO [id number] <Conclusion> Sinus tachycardia Possible Anterior infarct, age undetermined Abnormal ECG
--- NOTE | 2017-01-08 23:00 | CP.PCM.PN ---
Subjective - Date & Time of Evaluation Date of Evaluation: 01/08/17 Time of Evaluation: 18:35 Objective - Vital Signs/Intake and Output Vital Signs (last 24 hours): Temp Pulse Resp BP Pulse Ox 98.3 F 84 20 130/90 99 01/08/17 15:15 01/08/17 15:15 01/08/17 15:15 01/08/17 17:03 01/08/17 15:15 Intake and Output: 01/08/17 01/09/17 18:59 06:59 Intake Total 640 Balance 640 - Medications Medications: Current Medications Aspirin (Aspirin Chewable) 81 mg PO DAILY [facility] Last Admin: 01/08/17 10:15 Dose: 81 mg Clopidogrel Bisulfate (Plavix) 75 mg PO DAILY [facility] Last Admin: 01/08/17 10:15 Dose: 75 mg Famotidine (Pepcid) 20 mg PO DAILY [facility] Last Admin: 01/08/17 11:58 Dose: 20 mg Heparin Sodium (Porcine) (Heparin) 5,000 units SC Q12 [facility] Last Admin: 01/08/17 22:16 Dose: 5,000 units Insulin Human Regular (Novolin R) 0 unit SC ACHS [facility] PRN Reason: Protocol Last Admin: 01/08/17 22:18 Dose: 1 unit Metoprolol Tartrate (Lopressor) 2.5 mg IVP Q6H [facility] Last Admin: 01/08/17 22:19 Dose: Not Given Metoprolol Tartrate (Lopressor) 25 mg PO BID [facility] Last Admin: 01/08/17 17:03 Dose: 25 mg Potassium Chloride (K-Dur 20 Meq Er Tab) 40 meq PO DAILY [facility] Last Admin: 01/08/17 11:56 Dose: 40 meq Rosuvastatin Calcium (Crestor) 5 mg PO HS [facility] Last Admin: 01/08/17 22:16 Dose: 5 mg - Labs Labs: 01/08/17 06:09 01/08/17 06:10 PT 11.8 SECONDS (9.7-12.2) 01/07/17 17:23 INR 1.0 01/07/17 17:23 APTT 24 SECONDS (21-34) 01/07/17 17:23
[2017-01-09 01:25] VITALS: O2SAT 97
[2017-01-09] MEDS: Metoprolol 1 mg/ml Inj IVP SCH ×3 (05:06→10:14)
[2017-01-09] MEDS: (Novolin R) Insulin Human Regular 100 units/ml vial SC SCH ×2 (07:48→12:45)
[2017-01-09 07:53] VITALS: PULSE 80; TEMP 98.4
--- NOTE | 2017-01-09 08:04 | CP.PCM.PN ---
Subjective - Date & Time of Evaluation Date of Evaluation: 01/09/17 Time of Evaluation: 08:01 - Subjective Subjective: Ms. Altamirano was seen and examined at the bedside. She denies any headache, dizziness, blurry vision, nausea, or lightheadedness. There is no untoward events overnight. Objective - Vital Signs/Intake and Output Vital Signs (last 24 hours): Temp Pulse Resp BP Pulse Ox 98.4 F 80 20 120/77 97 01/09/17 07:52 01/09/17 07:52 01/09/17 07:52 01/09/17 07:52 01/09/17 07:52 - Medications Medications: Current Medications Aspirin (Aspirin Chewable) 81 mg PO DAILY [facility] Last Admin: 01/08/17 10:15 Dose: 81 mg Clopidogrel Bisulfate (Plavix) 75 mg PO DAILY [facility] Last Admin: 01/08/17 10:15 Dose: 75 mg Famotidine (Pepcid) 20 mg PO DAILY [facility] Last Admin: 01/08/17 11:58 Dose: 20 mg Heparin Sodium (Porcine) (Heparin) 5,000 units SC Q12 [facility] Last Admin: 01/08/17 22:16 Dose: 5,000 units Insulin Human Regular (Novolin R) 0 unit SC ACHS [facility] PRN Reason: Protocol Last Admin: 01/08/17 22:18 Dose: 1 unit Metoprolol Tartrate (Lopressor) 2.5 mg IVP Q6H [facility] Last Admin: 01/09/17 05:06 Dose: Not Given Metoprolol Tartrate (Lopressor) 25 mg PO BID [facility] Last Admin: 01/08/17 17:03 Dose: 25 mg Potassium Chloride (K-Dur 20 Meq Er Tab) 40 meq PO DAILY [facility] Last Admin: 01/08/17 11:56 Dose: 40 meq Rosuvastatin Calcium (Crestor) 5 mg PO HS [facility] Last Admin: 01/08/17 22:16 Dose: 5 mg - Labs Labs: 01/08/17 06:09 01/08/17 06:10 PT 11.8 SECONDS (9.7-12.2) 01/07/17 17:23 INR 1.0 01/07/17 17:23 APTT 24 SECONDS (21-34) 01/07/17 17:23 - Constitutional Appears: Well - Head Exam Head Exam: ATRAUMATIC, NORMAL INSPECTION, NORMOCEPHALIC - Neurological Exam Neurological Exam: Alert, Awake, CN II-XII Intact, Normal Gait, Oriented x3 Neuro motor strength exam: Left Upper Extremity: 5, Right Upper Extremity: 5, Left Lower Extremity: 5, Right Lower Extremity: 5 Additional comments: Neurological unchanged from previous examination. There is no neuro deficits. Assessment and Plan (1) Acute ischemic stroke Assessment & Plan: Case discussed with Dr. Gross, continue all current medical, physical, occupational, and speech therapies. Awaiting echocardiogram with bubble study result. There is no new recommendation from neurology. Status: Acute
[2017-01-09] MEDS: Potassium Chloride 20 mEq ER Tab PO SCH (09:50)
[2017-01-09 09:54] VITALS: BP 126/76
--- NOTE | 2017-01-09 14:33 | CP.PCM.PN ---
Subjective - Date & Time of Evaluation Date of Evaluation: 01/09/17 Time of Evaluation: 11:00 - Subjective Subjective: Patient seen an d examined today ,denies any chest pain , sob, headache, dizziness, blurry vision, lightheadedness N/V No overnight events recorded on monitor no overnight events reported by RN Objective - Vital Signs/Intake and Output Vital Signs (last 24 hours): Temp Pulse Resp BP Pulse Ox 98.4 F 80 20 126/76 97 01/09/17 07:52 01/09/17 07:52 01/09/17 07:52 01/09/17 09:52 01/09/17 07:52 - Medications Medications: Current Medications Aspirin (Aspirin Chewable) 81 mg PO DAILY [facility] Last Admin: 01/09/17 09:50 Dose: 81 mg Clopidogrel Bisulfate (Plavix) 75 mg PO DAILY [facility] Last Admin: 01/09/17 09:49 Dose: 75 mg Famotidine (Pepcid) 20 mg PO DAILY [facility] Last Admin: 01/09/17 09:50 Dose: 20 mg Heparin Sodium (Porcine) (Heparin) 5,000 units SC Q12 [facility] Last Admin: 01/09/17 09:51 Dose: 5,000 units Insulin Human Regular (Novolin R) 0 unit SC ACHS [facility] PRN Reason: Protocol Last Admin: 01/09/17 12:45 Dose: 4 unit Metoprolol Tartrate (Lopressor) 2.5 mg IVP Q6H [facility] Last Admin: 01/09/17 10:14 Dose: Not Given Metoprolol Tartrate (Lopressor) 25 mg PO BID [facility] Last Admin: 01/09/17 09:52 Dose: 25 mg Potassium Chloride (K-Dur 20 Meq Er Tab) 40 meq PO DAILY [facility] Last Admin: 01/09/17 09:50 Dose: 40 meq Rosuvastatin Calcium (Crestor) 5 mg PO HS [facility] Last Admin: 01/08/17 22:16 Dose: 5 mg - Labs Labs: 01/08/17 06:09 01/08/17 06:10 PT 11.8 SECONDS (9.7-12.2) 01/07/17 17:23 INR 1.0 01/07/17 17:23 APTT 24 SECONDS (21-34) 01/07/17 17:23 - Constitutional Appears: Well, No Acute Distress - Respiratory Exam Respiratory Exam: Clear to Ausculation Bilateral, NORMAL BREATHING PATTERN - Cardiovascular Exam Cardiovascular Exam: REGULAR RHYTHM, +S1, +S2 - Neurological Exam Neurological Exam: Alert, Awake, Oriented x3 Assessment and Plan - Assessment and Plan (Free Text) Assessment: A/P 46 yr old female admitted for right sided facial droop and slurred speech/ acute CVA vss- stable seen by neurology today , recommends to continue current medication , no new intervention D/W Dr. Colón, cleared for discharge home today and f/u with Dr. Colón office on Sunday Discharge plan discussed patient who understands and agrees with plan Patient instructed to returns to ED if symptoms returnsor any other concerning symptoms
[2017-01-09 14:53] LABS: CHLORIDE 100 mmol/L (98-107); POTASSIUM 3.9 mmol/L (3.6-5.2); SODIUM 132 mmol/L (132-148)
[2017-01-09 14:55] LABS: GFR AFRICAN-AMERICAN > 60
[2017-01-09 14:56] LABS: BLOOD UREA NITROGEN 9 mg/dL (7-17); CARBON DIOXIDE 21 mmol/L (22-30); GLUCOSE,RANDOM 242 mg/dL (65-105)
[2017-01-09 14:57] LABS: CALCIUM 8.4 mg/dl (8.6-10.4)
[2017-01-09 15:03] LABS: HOMOCYSTEINE 5.4 umol/L (4.7-12.6)
--- NOTE | 2017-01-11 08:12 | PQF CVATIA ---
This form is a permanent part of the medical record To Vinny benedict MD Patient was presnted to the ED woth facial droop, slurred speech and weakness. known history of DM ; HTN. with hyperglycemia, hypokalemia. Please clarify if CVA was ruled in or ruled out Thank you. Clarification of your documentation is requested to better reflect the severity of illness and intensity of treatment of your patient. Indicators present: [] Altered mental status [] Aphasia [] Dysphagia [] Dysphasia [X] Facial droop/numbness [] Gait disturbance [] Hemiparesis/plegia [X] Speech impairment [] Weakness [] Neuro Consult [] CT/MRI Findings [] Other: [] Location in the medical record that reflects the above clinical findings: [] Treatment Provided: [] PHYSICIAN'S RESPONSE Based on your medical judgment of the clinical indicators outlined above, are you treating this patient for a known or suspected: [] Acute Cerebrovascular Accident (CVA) Please specify type i.e.; embolic, hemorrhagic, ischemic. Please specify the artery involved if known. [] Transient Ischemic Accident (TIA) [] Prolonged reversible ischemic neurological disorder [] Other, please indicate: [] [] If unable to determine, please check the box, sign and date. Present On Admission (POA) Indicator: [] Present at the time of admission [] Not present at the time of admission [] Clinically Undetermined In responding to this query, please exercise your independent professional judgment. The fact that a question is asked does not imply that any particular answer is desired or expected. Thank you for your clarification on this documentation. If you have any questions please call:[ ] * Thank you, [ Zaina De La Cruz, [facility]] social media director YOGI
--- NOTE | 2017-01-13 16:38 | CARD ---
APPROVED REPORT EXAM: Two-dimensional and M-mode echocardiogram with Doppler and color Doppler. Other Information Quality : [employer] : INDICATION CVA/TIA RISK FACTORS Diabetes M-Mode DIMENSIONS RVDd1.80 (2.1-3.2cm)Left Atrium (MM)3.71 (2.5-4.0cm) IVSd1.63 (0.7-1.1cm)Aortic Root2.64 (2.2-3.7cm) LVDd4.48 (4.0-5.6cm)Aortic Cusp Exc.1.74 (1.5-2.0cm) PWd1.32 (0.7-1.1cm)FS (%) 43 % LVDs2.53 (2.0-3.8cm)LVEF (%)75 (>50%) Aortic Valve AoV Peak Smmdahbs619.3cm/Kori Peak GR.6mmHg Mitral Valve MV E Mzpsbmbo420.5cm/sMV A Jsocnqxu62.0cm/sE/A ratio1.2 TDI E/Lateral E'0.0E/Medial E'0.0 Tricuspid Valve TR Peak [id number]/sTR Peak Gr.[id number] LEFT VENTRICLE The left ventricle is normal size. There is mild to moderate concentric left ventricular hypertrophy. Left ventricle systolic function is normal. The Ejection Fraction is >70%. There is normal LV segmental wall motion. The left ventricular diastolic function is normal. RIGHT VENTRICLE The right ventricle is normal size. There is normal right ventricular wall thickness. The right ventricular systolic function is normal. ATRIA The left atrium size is normal. The right atrium size is normal. The interatrial septum is intact with no evidence for an atrial septal defect. AORTIC VALVE The aortic valve is normal in structure. No aortic regurgitation is present. There is no aortic valvular stenosis. There is no aortic valvular vegetation. MITRAL VALVE The mitral valve is normal in structure. There is no evidence of mitral valve prolapse. There is no mitral valve stenosis. Mitral regurgitation is mild. TRICUSPID VALVE The tricuspid valve is normal in structure. There is mild tricuspid regurgitation. Right ventricular systolic pressure is estimated at 30-40 mmHg. There is mild pulmonary hypertension. PULMONIC VALVE The pulmonic valve is not well visualized. There is no pulmonic valvular regurgitation. GREAT VESSELS The aortic root is normal in size. PERICARDIAL EFFUSION There is no significant pericardial effusion. <Conclusion> Left ventricle systolic function is normal. The Ejection Fraction is >70%. Hypertensive heart disease . No aortic regurgitation is present. Mitral regurgitation is mild. There is mild tricuspid regurgitation. There is mild pulmonary hypertension. There is no pulmonic valvular regurgitation.
== END 2017-01-09 15:44 | disposition home or self-care (01) | DRG 66 ==
LOC: C.ER 17:14 → C.9E 18:49 → C.9I 18:49 → C.6T 01-08 14:29
PROVIDERS: ADMIT Internal Medicine; ATTEND Internal Medicine
DX: I63.9 Cerebral infarction, unspecified (principal); E11.65 Type 2 diabetes mellitus with hyperglycemia; I10 Essential (primary) hypertension; Z79.4 Long term (current) use of insulin; F17.210 Nicotine dependence, cigarettes, uncomplicated; R29.810 Facial weakness; R47.81 Slurred speech; E87.6 Hypokalemia

== ENCOUNTER 2017-01-17 13:31 | Emergency (ER) | payer BC ==
[2017-01-17 13:31] VITALS: BMI 24.7
[2017-01-17 13:38] VITALS: BP 170/96; PULSE 66; RESP 18; TEMP 98; O2SAT 99
--- NOTE | 2017-01-17 15:03 | C.PDOC ---
History Of Present Illness 46 y/o female with PMHx of HTN and DM presents to ed with complaints of waking up with right face swelling and is concern for allergic reaction to new medication. Patient was seen at ED recently and admitted for right sided weakness and diagnosed with Stroke, symptoms were managed and patient was discharged with new medication. Patient denies headache, chills, sob, swelling to mouth, lips swelling or any other complaints at this time. Time Seen by Provider: 01/17/17 13:55 Chief Complaint (Nursing): Medical Clearance History Per: Patient History/Exam Limitations: no limitations Onset/Duration Of Symptoms: Days Current Symptoms Are (Timing): Still Present Past Medical History Reviewed: Historical Data, Nursing Documentation, Vital Signs Vital Signs: Last Vital Signs Temp 98.0 F 01/17/17 13:38 Pulse 66 01/17/17 13:38 Resp 18 01/17/17 13:38 BP 170/96 H 01/17/17 13:38 Pulse Ox 99 01/17/17 15:22 - Medical History PMH: Diabetes, HTN, Hypercholesterolemia Surgical History: No Surg Hx Family History: States: No Known Family Hx - Social History Hx Alcohol Use: Yes (Ocassional) Hx Substance Use: No - Immunization History Hx Tetanus Toxoid Vaccination: No Hx Influenza Vaccination: No Hx Pneumococcal Vaccination: No Review Of Systems Constitutional: Negative for: Fever, Chills Cardiovascular: Negative for: Chest Pain Respiratory: Negative for: Cough, Shortness of Breath Gastrointestinal: Negative for: Nausea, Vomiting Skin: Negative for: Rash Neurological: Negative for: Weakness, Numbness Physical Exam - Physical Exam Appears: Non-toxic, Other (puffy right cheek) Skin: Warm, Dry Head: Atraumatic, Normacephalic Eye(s): bilateral: Normal Inspection, EOMI Oral Mucosa: Moist Tongue: Normal Appearing, No Swelling Lips: Normal Appearing, No Swelling Throat: Normal, No Erythema, No Exudate Neck: Normal ROM, Supple Chest: Symmetrical Cardiovascular: Rhythm Regular Respiratory: Normal Breath Sounds, No Rales, No Rhonchi, No Wheezing Extremity: Normal ROM, No Pedal Edema Neurological/Psych: Oriented x3, Normal Speech, Normal Cognition, Normal Motor, Normal Sensation ED Course And Treatment O2 Sat by Pulse Oximetry: 99 (RA) Pulse Ox Interpretation: Normal Disposition Counseled Patient/Family Regarding: Diagnosis, Need For Followup - Disposition Disposition: HOME/ ROUTINE Disposition Time: 15:02 Condition: STABLE Additional Instructions: Continue taking your medications as directed. Follow up with your MD. Forms: [facility] (Maltese), General Discharge Instructions - POA Present On Arrival: None - Clinical Impression Clinical Impression: Facial swelling - Scribe Statement The provider has reviewed the documentation as recorded by the Debbieibarturo Masters All medical record entries made by the Debbieibarturo were at my direction and personally dictated by me. I have reviewed the chart and agree that the record accurately reflects my personal performance of the history, physical exam, medical decision making, and the department course for this patient. I have also personally directed, reviewed, and agree with the discharge instructions and disposition.
== END 2017-01-17 15:15 | disposition home or self-care (01) ==
LOC: C.ER 13:31
DX: R22.0 Localized swelling, mass and lump, head (principal)